=== PATIENT | male | born 1950 | race Caucasian/White ===

== ENCOUNTER → 2024-07-19 10:03 | Outpatient (REF) | payer OTHER, SELFPAY | LOC: HWRCS 10:03 | PROVIDERS: ATTENDING PHYSICIAN Internal Medicine; FAMILY PHYSICIAN Family Medicine | DX: R07.89 Other chest pain (principal); I49.3 Ventricular premature depolarization; I48.0 Paroxysmal atrial fibrillation; I42.1 Obstructive hypertrophic cardiomyopathy; R00.2 Palpitations | CPT/HCPCS: 93306 ==

== ENCOUNTER → 2024-07-29 08:17 | Outpatient (REF) | payer OTHER, SELFPAY | LOC: DHCBC/DCA 08:17 | PROVIDERS: ATTENDING PHYSICIAN Internal Medicine; FAMILY PHYSICIAN Family Medicine | DX: R07.89 Other chest pain (principal); I49.3 Ventricular premature depolarization; I48.0 Paroxysmal atrial fibrillation; I42.1 Obstructive hypertrophic cardiomyopathy; R00.2 Palpitations | CPT/HCPCS: 78452; 93017; A9500 ==

== ENCOUNTER → 2025-01-14 06:37 | Outpatient (REF) | payer OTHER, SELFPAY | LOC: MRI 06:37 | PROVIDERS: ATTENDING PHYSICIAN Physician Assistant Surgical; FAMILY PHYSICIAN Family Medicine | DX: M25.561 Pain in right knee (principal) | CPT/HCPCS: 73721 ==

== ENCOUNTER → 2025-03-25 08:16 | Outpatient (REF) | payer OTHER, SELFPAY | LOC: MRI 3T 08:16 | PROVIDERS: ATTENDING PHYSICIAN Specialist; FAMILY PHYSICIAN Family Medicine | DX: M25.511 Pain in right shoulder (principal) | CPT/HCPCS: 73221 ==

== ENCOUNTER 2025-05-23 23:11 | Emergency (ER) | payer OTHER, SELFPAY ==
[2025-05-23 23:12] VITALS: BP 140/100
[2025-05-23 23:25] VITALS: BP 141/87
[2025-05-23 23:27] VITALS: BMI 25.2
[2025-05-23 23:37] LABS: Hematocrit 43.5 % (39.0-52.0); Hemoglobin 15.4 g/dL (13.0-18.0); Mean Corp Hgb Conc. 35.4 g/dL (33.0-37.0); Mean Corpuscular Volume 89.0 fL (80.0-94.0); Nucleated Red Blood Cells % 0 % (-); Platelet Count 246 10^3/uL (130-400); Red Cell Dist. Width 12.5 % (11.5-14.5)
[2025-05-23] MEDS: CARDIZEM 20 MG IV (23:39)
[2025-05-23] MEDS: CARDIZEM 125 IV (23:40)
[2025-05-23 23:43] LABS: INR 1.01; PT 13.6 Sec (11.4-14.6)
[2025-05-23 23:44] LABS: APTT 27.9 Sec (23.4-35.0)
[2025-05-24] VITALS (14 sets, daily range): BP systolic 93–127; BP diastolic 61–98
[2025-05-24 00:05] LABS: ALT (SGPT) 17 U/L (0-50); AST (SGOT) 30 U/L (17-59); Albumin 4.5 g/dl (3.5-5.0); Alkaline Phosphatase 54 U/L (38-126); Blood Urea Nitrogen 34 mg/dl (9-20); Calcium 9.9 mg/dl (8.4-10.2); Carbon Dioxide 28 mmol/L (22-30); Chloride 103 mmol/L (98-107); Estimated Creatinine Clearance 58 ml/min; Glucose 121 mg/dl (70-99); Potassium 4.1 mmol/L (3.5-5.1); Sodium 137 mmol/L (135-145); Total Protein 6.9 g/dl (6.3-8.2); eGFR > 60.00
[2025-05-24 00:09] LABS: Troponin I < 0.012 ng/ml
--- NOTE | 2025-05-24 00:26 | ED.GENMED ---
History of Present Illness
General
Chief Complaint: Heart Rate Problem
Source: patient and spouse
Exam Limitations: none
Time Seen by Provider: 05/23/25 23:17
Nursing documentation reviewed up to this point in time: agreed with
History of Present Illness
History of Present Illness:
Note:
CHIEF COMPLAINT(S)
Palpitations.
HISTORY OF PRESENT ILLNESS
The patient is a 74 year old male with a known history of atrial fibrillation currently managed on Rivaroxaban. He presents with palpitations that began at approximately 9:30. He reports that her typical management for atrial fibrillation includes
the administration of Diltiazem (referred to as Cardizem) which was effective in the past, converting his rhythm back to normal. He denies any recent missed doses of his medication and no episodes of cardioversion requiring electric shock. The
patient denies associated symptoms such as shortness of breath but mentions feeling pressure in his chest. It was discussed that Diltiazem would be administered through IV to attempt conversion of his atrial fibrillation, and if he does not convert,
electric cardioversion would be considered. Blood pressure was noted to be at 147 systolic due to atrial fibrillation, which the attending plans to address with Diltiazem.
ADDITIONAL HISTORY OBTAINED FROM SOURCES OTHER THAN THE PATIENT
Not applicable
CHRONIC MEDICAL CONDITIONS SIGNIFICANTLY AFFECTING CARE
History of atrial fibrillation.
MEDICATIONS
Rivaroxaban (Xarelto).
PHYSICAL EXAM
General: Alert, no acute distress.
Skin: Warm, dry.
Head: Normocephalic, atraumatic.
Neck: Supple, trachea midline.
Eye Ears, nose, mouth and throat: Oral mucosa moist.
Cardiovascular: Normal peripheral perfusion, No edema. Irregularly irregular rhythm
Respiratory: Respirations are non-labored.
Gastrointestinal: Abdomen nondistended.
Musculoskeletal: Normal range of motion, normal strength.
Neurological: Alert and oriented to person, place, time, and situation. No focal neurological deficit observed.
Psychiatric: Cooperative, appropriate mood & affect.
PLAN
- Administer intravenous Diltiazem for rhythm conversion.
- Monitor for one hour post-administration to assess for conversion.
- If necessary, obtain consent for electrical cardioversion.
DIFFERENTIAL DIAGNOSIS
The Differential Diagnosis includes, in no particular order and is not limited to:
1. Atrial fibrillation
2. Paroxysmal supraventricular tachycardia
3. Atrial flutter
4. Mitral valve prolapse
5. Hyperthyroidism
6. Anxiety disorder
7. Hypertension
8. Electrolyte imbalance
9. Structural heart disease
10. Sinus tachycardia.
Disposition:
SUMMARY OF ENCOUNTER
A 74-year-old male with a known history of atrial fibrillation presented with palpitations due to atrial fibrillation with a rapid ventricular response. He underwent synchronized cardioversion after signing consent for the procedure. The procedure
involved administration of 80 mg of propofol for sedation and delivery of an electric shock at 200 joules. The patient tolerated the procedure well and rhythm conversion was achieved.
DISPOSITION
Discharge to home after one-hour observation in the emergency department.
ASSESSMENT
Atrial fibrillation with rapid ventricular response, effectively treated through cardioversion.
EMERGENCY TREATMENTS ADMINISTERED
- Synchronized cardioversion at 200 joules
- Propofol administered, 80 mg for sedation
PLAN
- Educate the patient on recognizing symptoms of atrial fibrillation and when to seek immediate medical attention.
- Continue monitoring and follow-up with a pickling grader to assess the need for long-term management adjustments.
PATIENT EDUCATION AND COUNSELING
The patient was educated on the importance of adherence to anticoagulation therapy with rivaroxaban and was advised to follow up with his pickling grader for further management of atrial fibrillation.
FOLLOW-UP INSTRUCTIONS
Please contact your pickling grader to schedule a follow-up appointment to discuss your recent episode and any necessary medication adjustments.
MEDICATION RECONCILIATION
- Rivaroxaban (Xarelto) continued as per current prescription.
- Propofol administered for procedural sedation.
MEDICAL DECISION MAKING
1. Number and Complexity of Problems Addressed:
Chronic conditions affecting care: Atrial fibrillation
2. Data:
Category 1
None required for this encounter beyond standard post-procedure observation.
Category 3
Discussion of management involved consultation to coordinate resynchronization management through cardioversion.
3. Risk:
Prescription medication management continued with rivaroxaban. Cardioversion performed due to high risk associated with rapid ventricular response. Prioritized ensuring patient was safe for discharge after effective rhythm control was noted
post-procedure.
DIAGNOSIS
- Atrial fibrillation with rapid ventricular response (I48.91)
Past History
Past History
ED Past Medical History: Arrthythmia, HTN and Hypercholesterolemia
ED Past Surgical History: Other (Inguinal hernia repair)
Social History
Tobacco: Non-smoker
Phy Exam
Physical Exam
Physical Exam:
.
General Physical Exam
General Presentation: well appearing and mild distress
Cardiovascular Exam
Cardiovascular Exam: irregularly irregular
Course
Orders/Labs/Results
Orders:
Orders
05/23/25 23:14
ECG [Electrocardiogram (*1)] Urgent
Reason for Study: Palpitations
05/23/25 23:15
EKG- Treatment ONCE
05/23/25 23:23
Complete Blood Count/With Diff Urgent
Comprehensive Metabolic Panel Urgent
PTT Urgent
Prothrombin Time Urgent
Troponin I Urgent
05/23/25 23:35
Diltiazem HCl [Cardizem] 20 mg IV NOW STA
05/23/25 23:45
Diltiazem 125 mg/125 ml Nss [Cardizem] 125 mg in 125 ml IV PER PROTOCOL
Initial dose in mg/hr, then titrate:: 5
Titrate to keep:: Heart rate 80-100 bpm
Titrate by mg/hr:: 5 mg/hr
Frequency of titrations (minutes):: 15
Maximum dose in mg/hr:: 15
05/24/25 00:45
Propofol [Diprivan] 20 ml .ROUTE .STK-MED
Abnormal Lab Results
05/23/25
23:23
MCH 31.5 H pg
(27.0-31.0)
Absolute Monos (auto) 0.7 H 10^3/uL
(0.1-0.6)
BUN 34 H mg/dl
(9-20)
Glucose 121 H mg/dl
(70-99)
05/23/25 23:23
05/23/25 23:23
Vital Signs
Initial and Last Documented VS:
Initial Vital Signs
Temp Pulse Resp BP Pulse Ox
97 F 92 22 140/100 98
05/23/25 23:12 05/23/25 23:12 05/23/25 23:12 05/23/25 23:12 05/23/25 23:12
Last Documented Vital Signs
Temp Pulse Resp BP Pulse Ox
97 F 73 28 106/74 95
05/23/25 23:12 05/24/25 01:50 05/24/25 01:50 05/24/25 01:50 05/24/25 01:50
Procedures
Moderate Sedation
ASA Risk Score: Class I
Chart and allergies reviewed: Yes
Consent for anesthesia obtained: Yes
Time out completed (validating right patient & procedure): Yes
Moderate Sedation Start Time(when first medication is given): 00:56
History of difficult intubation: No
Airway free of obstruction: Yes
Patient has a gag reflex: Yes
Patient is able to open mouth: Yes
Patient has no dentures: Yes
Patient has no loose teeth: Yes
Medication administered by Provider during Moderate Sedation: IV Propofol (mg)
Total dose administered: 80
Time drug administered: 00:56
Moderate Sedation Procedure End Time: 01:10
Cardioversion
Indication:: Afib
Performed by:: Myself
Synchronized?: Yes
Energy Used: 200 joules
ASA Risk Score: Class I
Any reaction or bad outcome to prior sedation/anesthesia?: No history of a reaction
Sedation level to be attained: moderate
Chart and allergies reviewed: Yes
Patient reassessed prior to sedation: Yes
Time out completed at (validating right patient & procedure): 00:50
History of difficult intubation: No
Airway free of obstruction: Yes
Patient has a gag reflex: Yes
Patient is able to open mouth: Yes
Patient has no dentures: Yes
Patient has no loose teeth: Yes
Medication administered by Provider during Moderate Sedation: IV Propofol (mg)
Total dose administered: 80
Time drug administered: 00:56
Start Time: 00:56
Stop Time: 01:10
*Pulse Oximetry
SaO2: 95
Patient hypoxic: no
*Critical Care Note
Total Time (30-74mins, 75-104mins- exclusive of procedures): 34 (Critical care statement: A total of 34 minutes of critical care time was provided for this patient. This time is separate from time utilized to perform the aforementioned documented
procedures. Aggregate critical care time includes only time during which I was engaged in work directl)
ED Attending Note
-
Portions of this chart may have been created with voice recognition software.� Occasional wrong word or��sound alike� substitutions may have occurred due to the inherent limitations of voice recognition software.
Discharge Plan
Departure
Patient Disposition: Home (Routine Discharge)
Patient with high blood pressure during this ER visit?: No
Condition: Fair
Discharge Problem:
Atrial fibrillation with rapid ventricular response
Instructions: Atrial Fibrillation (DC), Cardioversion - Discharge instructions, MODERATE SEDATION ADULT, BLOOD PRESSURE
Prescriptions:
No Action
rosuvastatin 10 MG tablet
10 mg PO DAILY
aspirin 81 MG tablet,delayed release (DR/EC)
81 mg PO DAILY
vitamin E 1,000 UNIT capsule
1,000 unit PO DAILY
ascorbic acid (vitamin C) [Vitamin C] 1,000 MG tablet
1,000 mg PO DAILY
vitamin A 2,400 MCG capsule
2,400 mcg PO DAILY
cholecalciferol (vitamin D3) [Vitamin D3] 400 UNITS tablet
400 units PO DAILY
docosahexaenoic acid-epa 1 CAP capsule
1 cap PO DAILY
coenzyme T29-cluhshq E [Co Q-10 (with Vit E)] 1 EACH capsule
1 ea PO DAILY
wugpmuwzhxe-N6-Spoaodegk serr [Osteo Bi-Flex (5-Loxin)] 1 EACH tablet
1 ea PO DAILY
Calcium Carb/Mag Ox/Zinc Sulf [Ike-Uze-Vlgy 334-134-5 Mg Tab] 1 EACH Tablet
1 ea PO DAILY
multivitamin with folic acid [Tab-A-Frank] 1 TABLET tablet
1 tab PO DAILY
Tumeric/Ging/[place]/Oreg/Capryl [Candicidal Capsule] 1 EACH Capsule
2 ea PO DAILY
apixaban [Eliquis] 5 MG tablet
5 mg PO BID Qty: 60 0RF
diltiazem HCl [Cardizem CD] 120 mg capsule,extended release 24hr
120 mg PO DAILY Qty: 30 0RF
ibuprofen 200 MG tablet
400 - 600 mg PO Q6HPRN PRN (Reason: moderate pain) Qty: 1 0RF
Referrals:
Haider Guzmán MD [Active, Cardiology]
Shemar Ratliff DO [Family Provider, Family Practice]
Activity Restrictions/Additional Instructions:
Thank You for choosing [facility].
It was a pleasure meeting you and taking part in your care. We hope for your continued healing and wellness.
Please read discharge instructions in their entirety. However, they are for general education and may not describe your exact diagnosis at discharge. Information on your ER visit and medical conditions were discussed with you along with appropriate
follow up information...
If indicated, please take your medications as instructed and indicated on discharge paperwork.
Please schedule a follow up appointment as directed. Call to schedule an appointment
Please return to the emergency department with ANY change in, persisting, or worsening of symptoms. If any of your symptoms do not improve, or persist, or become more severe within 6-12 hours, please return to the emergency department for further
care.
Please return to the emergency department if you develop a headache, neck pain/stiffness, fever greater than 100.4F, chest pain, shortness of breath, persistent nausea, vomiting, slurred speech, difficulty walking, numbness/tingling, weakness, signs
of infection or any other symptoms that are worrisome to you.
If you have any questions or concerns please do not hesitate to call the Hospital at or E-mail me directly at [email or web address]
Interventions
Interventions:
*Risk Screen - Suicide Last Done: 05/23/25 23:12
*Neglect/Abuse Screening Last Done: 05/23/25 23:12
*Nursing Disposition Last Done: 05/24/25 02:02
ED- Cardiac Assessment Last Done: 05/23/25 23:26
ED- Pulmonary Assessment Last Done: 05/23/25 23:26
Discharge Date and Time
Discharge Date/Time: 05/24/25 02:02
Print Language: FRENCH
--- NOTE | 2025-05-24 02:40 | DOWNTIME ---
There was a [employer] [address] [employer] Client Hammer Driver Downtime on 05/24/2025 from 0100 to 05/24/2025 at 0235. Downtime documentation of patient's care, including medication administrations, has been reconciled in the electronic record per guidelines. Refer to the
patient's paper chart under the miscellaneous tab to see printed paper medication records and downtime forms.
== END 2025-05-24 02:02 | disposition home or self-care (01) ==
LOC: EMR 23:11
PROVIDERS: EMERGENCY PHYSICIAN Student in an Organized Health Care Education/Training Program; FAMILY PHYSICIAN Family Medicine
DX: I48.91 Unspecified atrial fibrillation (principal); I10 Essential (primary) hypertension; E78.00 Pure hypercholesterolemia, unspecified; Z79.01 Long term (current) use of anticoagulants; Z79.82 Long term (current) use of aspirin
CPT/HCPCS: 99291; 92960; 96374; 80053; 84484; 85025; 85610; 85730; 93005

== ENCOUNTER 2025-07-31 06:03 | Day surgery (SDC) | payer OTHER, SELFPAY ==
[2025-07-17 13:12] LABS: Hematocrit 42.9 % (39.0-52.0); Hemoglobin 14.6 g/dL (13.0-18.0); Mean Corp Hgb Conc. 34.0 g/dL (33.0-37.0); Mean Corpuscular Volume 90.7 fL (80.0-94.0); Nucleated Red Blood Cells % 0 % (-); Platelet Count 258 10^3/uL (130-400); Red Cell Dist. Width 12.3 % (11.5-14.5)
[2025-07-17 13:20] VITALS: BMI 26.0
[2025-07-17 13:59] LABS: ALT (SGPT) 17 U/L (0-50); AST (SGOT) 24 U/L (17-59); Albumin 4.3 g/dl (3.5-5.0); Alkaline Phosphatase 58 U/L (38-126); Blood Urea Nitrogen 27 mg/dl (9-20); Calcium 9.5 mg/dl (8.4-10.2); Carbon Dioxide 30 mmol/L (22-30); Chloride 102 mmol/L (98-107); Estimated Creatinine Clearance 55 ml/min; Glucose 97 mg/dl (70-99); Potassium 4.2 mmol/L (3.5-5.1); Sodium 137 mmol/L (135-145); Total Protein 6.8 g/dl (6.3-8.2); eGFR > 60.00
[2025-07-31] VITALS (11 sets, daily range): BP systolic 89–127; BP diastolic 57–83; BMI 25.5
[2025-07-31 08:45] LABS: ACT-LR - POC 318 Seconds (116-155)
[2025-07-31 09:07] LABS: ACT-LR - POC 358 Seconds (116-155)
--- NOTE | 2025-07-31 09:18 | ITS.CL.ABL ---
Clerk Supervisor - Ablation
Ablation
Procedure Report:
AFIB / A flutter ablation:
Mr. Arguello is a very pleasant 75 yr old gentleman with medical history significant for symptomatic persistent atrial fibrillation is here in the EP lab for atrial fibrillation / flutter ablation
Date of Procedure:
07/31/2025
Indications:
Symptomatic persistent atrial fibrillation
Pre-Operative Diagnosis:
Persistent atrial fibrillation
Post-Operative Diagnosis:
Persistent atrial fibrillation
Procedure Performed:
Atrial fibrillation ablation with wide area circumferential ablation (WACA) approach for pulmonary vein isolation
Posterior wall isolation
Performing Physician:
Marcell Jaramillo MD
Assistants:
EP staff
Anesthesia:
See anesthesia records
Detailed Description of the Procedure:
Written informed consent was obtained from the patient after a full explanation of the risks and benefits of the procedure including the risks of sedation and anesthesia.
The patient was brought to the electrophysiology laboratory in stable condition in fasting state. Continuous electrocardiographic and hemodynamic monitoring was initiated.
The initial rhythm was atrial fibrillation.
The procedure site was meticulously prepared with surgical scrub and allowed to dry with no pooling. Sterile draping was applied to cover the procedure site. The image intensifier was draped with sterile bag and positioned over the patient. After
infusion of local anesthetic, vascular access was obtained under ultrasound guidance and sheaths were placed over guide wire as detailed below.
The images of the ultrasound of the femoral vessels were stored in patient chart.
Sheath and Catheter Placement:
In the right femoral vein, an 8-Khmer sheath was placed under ultrasound guidance for use during the ablation procedure. And mapping catheter was intermittently placed in the high right atrium, right ventricle, left atrium and left ventricle. In
the right femoral vein, a 9-Fr sheath was placed for use during intracardiac echo procedure.
The sheaths were upgraded as needed during the case. Intracardiac catheters were positioned using direct fluoroscopic guidance. ICE catheter was placed in RA. The following catheters / sheaths were placed
Sheaths:
? Agilis sheath in right femoral vein upgraded from 9Fr in right femoral vein
? 9Fr in right femoral vein
? 7Fr in right femoral vein
Catheters:
? The Affera Sphere 9 catheter -bidirectional D/F - at locations of HRA, RV, LA and LV.
? ICE catheter -AccuNav - at locations of RA, SVC, and RV.
? Bard decapolar catheter in CS and RA
Heparin was initiated after the access was obtained.
Intracardiac ECHO:
An 8-Khmer AcuNav intracardiac ECHO (ICE) probe was advanced through the 9-Khmer sheath in the left femoral vein into the right atrium under fluoroscopic and ICE ultrasound image guidance and a baseline ECHO study was performed. The left atrial
size was dilated. There was trace tricuspid regurgitation. The aortic valve was grossly normal. There was normal left ventricular systolic function. There is no pericardial effusion. The CRISTINO has baseline low velocities. The pulmonary had good flow
identified.
During the procedure, ICE was used for monitoring of complications, guidance of trans-septal puncture, monitor the catheter position and tracking ablation lesions. No change in the pericardial space noted throughout the procedure.
Trans-septal Puncture:
Heparin was initiated and infused to maintain appropriate ACT. A J-tipped guidewire was advanced through into the superior vena cava under fluoroscopic and ICE guidance. The Agilis sheath was advanced into the superior vena cava over a guidewire.
The BRK needle was placed inside the Agilis sheath. The apparatus was withdrawn until it was in contact with the fossa ovalis. The position was adjusted based on fluoroscopy and ultrasound images from ICE. Under fluoroscopic, hemodynamic and ICE
ultrasound guidance, left atrium was cannulated by advancing the needle. Once atrial septum was cannulated, the needle was pulled back and the guide wire was advanced through the needle into the left atrium. The guide wire was advanced into the left
superior pulmonary vein. Both the sheath and the dilator was advanced into the left atrium. The dilator with the needle was withdrawn. Blood was aspirated from the Agilis sheath and arterial blood confirmed. The sheath was flushed. Saline injection
noted into the left atrium on ICE. The waveform of the LA pressure was recorded. The mapping catheter was advanced in the Agilis sheath into the left pulmonary vein.
3D Electroanatomic Mapping:
Using the Sphere 9 Affera catheter advanced through Agilis sheath into the left atrium, an electroanatomic map (EAM) of the left atrium was created using [employer]� mapping system with [employer] software. The map was used for localization of catheter
position and tacking of ablation lesions. The EAM of the left atrium showed a total of 4 PVs with two left and the two right sided pulmonary veins with all electrically connected to the body the LA. It showed scattered scar on the posterior wall of
the LA. The LA was dilated in size.
Following the EAM, preparation were made for ablation.
Ablation:
Ablation # 1: Pulmonary vein Isolation:
Pulsed field ablation was performed using an open irrigation, bidirectional, contact sensing, dual energy ablation catheter (Affera sphere -9) by completing the circumferential lesions around the left and right pulmonary veins achieving pulmonary
vein isolation.
There was extensive scar noted in the posterior wall with slowing of conduction making a substance for reentry flutter.
Ablation # 2: Roof line Formation:
There was a clear channel of electrical activity left in the posterior wall with multiple CFAE and AF areas on the roof and ablation in that area increased the risk of atrial flutter and decision was made to create a roof line to block a slow
conduction. A set of pulsed field ablations were placed on the roof line connecting the left superior pulmonary vein ablation lesions to the right superior pulmonary vein lesions rings.
Ablation # 3: Posterior wall isolation with the Box lesions set Formation:
There was a significant fractionation seen in the posterior wall and LA AF foci along with CFAE made it clear as the posterior wall is critical in maintaining the atrial fibrillation and the decision was made to isolate the posterior wall by
creating a �Box� lesions.
A set of Pulsed field ablations were placed on the floor line connecting the left inferior pulmonary vein ablation lesions to the right inferior pulmonary vein lesions rings.
The sphere 9 in the posterior wall showed entrance block and the pacing from the posterior wall showed no exit from the box lesions confirming the exit block.
Cardioversion:
Due to the persistence of atrial fibrillation during the case, the decision was made to proceed with a cardioversion followed by the remainder of the ablation as detailed below. Therefore, a 200J shock was delivered to the chest via Zoll patches
placed with episcopal of sinus rhythm. The patient remained hemodynamically stable throughout.
Confirmation of the PVI and bidirectional block:
Following achievement of entrance block at the pulmonary veins, pacing from the Sphere 9 affera catheter in each of the four veins at 20 milliamps for 4 milliseconds showed entrance and exit block.
The LA was mapped with The [employer] mapping system with [employer] software in sinus rhythm confirming the line of block at the ablation lesions lines.
EP study:
Sinus Node Function: The sinus node functions are within acceptable normal range.
Atrioventricular Bryce Function: Normal AV conduction noted.
Procedure End
ICE study was done again that showed no epicardial accumulation. No complications noted.
Following the completion of the EP study, catheters were removed. Protamine 40 mg was given at the end of the procedure and ACT was checked repeatedly. The sheaths were removed and hemostasis achieved with Fig of 8 suture and manual compression
after acceptable ACT is achieved.
Left atrial Pressure:
Pre-Procedure: Mean LA pressure was 7mmHg (AF)
Post-Procedure: Mean LA pressure was 12mmHg (Sinus)
Post-Procedure: Mean RA pressure was 8mmHg
Total ablation lesions:
Affera -92 lesions
Fluoro Time:
0.9min / 0.77 Gycm2
Estimated Blood loss:
<10 cc
Specimens Removed:
None.
Implants / Devices:
None
Urine output:
None
Packs / Drains/ Tubes:
None
Instrument / Sponge Count Correct:
Yes
Complications of the Procedure:
None
Condition of Patient at Time of Transfer:
Hemodynamically stable with no neurological or vascular compromise.
Summary:
? Successful atrial fibrillation ablation with circumferential bidirectional line of block at pulmonary venin antra (Pulmonary vein isolation), roof flutter line creation, Posterior wall isolation.
Figures from the Procedure:
Figure 1: The electroanatomic mapping (EAM) of the left atrium with bipolar voltage (purple indicates normal electrical activity with red as no myocardial muscle electric activity indicating a line of block or scar.
--- NOTE | 2025-07-31 15:04 | W.PN.UPDATE ---
Update Note
Progress Note Update
Pt seen post PFA. Right groin site without ht/bleeding, non tender. Post EKG NSR 70s, no acute changes. One dose xarelto tonight at 4pm, then resume regular timing on 08/01. Followup at [facility] arranged. Home today if groin site/tele remain stable.
== END 2025-07-31 14:00 | disposition home or self-care (01) ==
LOC: CATH 06:03
PROVIDERS: ATTENDING PHYSICIAN Internal Medicine Cardiovascular Disease; FAMILY PHYSICIAN Family Medicine; OTHER PHYSICIAN Internal Medicine
DX: I48.19 Other persistent atrial fibrillation (principal); I47.10 Supraventricular tachycardia, unspecified; I48.92 Unspecified atrial flutter; I10 Essential (primary) hypertension; F41.9 Anxiety disorder, unspecified; E05.90 Thyrotoxicosis, unspecified without thyrotoxic crisis or storm; I34.1 Nonrheumatic mitral (valve) prolapse
CPT/HCPCS: C1769; C1894; C1730 ×2; C1733; C1766; C1892; C1759; 36415; 80053; 85025; 85347; 86850; 86900; 86901; 93005; 93656; 93657